=== PATIENT | male | born 1965 | race Caucasian/White ===

== ENCOUNTER 2018-09-21 14:08 | Emergency (ER) | payer BC ==
--- NOTE | 2018-09-21 14:26 | PDOC ---
History of Present Illness - General Chief Complaint: Blood Pressure Problem Stated Complaint: HIGH BLOOD PRESSURE, LEFT EAR PAIN, HEADACHE Time Seen by Provider: 09/21/18 14:24 - History of Present Illness Initial Comments: 09/21/18 14:38 52yo male presents with his brother for eval of elevated BP and difficulty walking today. Pt states he developed a L sided adair and ear pain last night. Pt states he has a hx of HTN and has only taken his ramipril as needed. Pt states he took ramipril 2.5mg last night for elevated BP and the adair. States he woke up this AM and took ramipril this AM 5mg because he still had the headache and elevated BP. States he attempted to walk to work, but felt he was off balance when walking and felt "dizzy". Denies falls. No f/c. No cp/sob/palpitations. No abd pain. No n/v/d. No blurred vision or change in vision. No weakness. No urinary complaints. No paresthesias. Pt currently c/o a L sided adair and ear pain. Pmhx: HTN, gallstones PShx: denies Allergies: denies Meds: noncompliant with ramipril social hx: employed, denies smoking/alcohol/drugs tPA Exclusion checklist 3-4.5h - Time Elapsed Date last known well: 09/20/18 Time last known well: 17:00 Elaspsed time: Day(s) and 23 Hour(s) and 29 Minutes - Thrombolytic Therapy Candidate Is patient eligible for thrombolytic therapy: No - Ineligibility reason(s) Reasons No tPA given: Outside of window - delayed arrival (onset yesterday, NIHSS = 0) NIH Stroke Scale - Last Known Well Date/Time & Onset Date Last Known Well: 09/20/18 Time Last Known Well: 17:00 - Initial Evaluation Level of consciousness: Alert Ask patient the month and their age: Answers both correctly Ask patient to open & close eyes; make fist and let go: Obeys both correctly Best gaze (horizontal eye movement): Normal Visual field testing: No visual field loss Facial paresis (Show teeth/raise eyebrows/close eyes tight): Normal symmetrical movement Motor Function: Left Arm: Normal Motor Function: Right Arm: Normal (extends arm 90 (or 45) degrees for 10 seconds without drift Motor Function: Left Leg: Normal (extends leg 30 degrees for 5 seconds without drift) Motor Function: Right Leg: Normal (extends leg 30 degrees for 5 seconds without drift) Limb Ataxia: No ataxia Sensory(Use pinprick test arms,legs,trunk,face/side to side): Normal Best language (Describe picture, name items, read sentences): No Aphasia Dysarthria (read several words): Normal articulation Extinction and Inattention: No abnormality - Total Score NIH Stroke Scale Score: 0 Past History - Past Medical History Allergies/Adverse Reactions: Allergies Allergy/AdvReac Type Severity Reaction Status Date / Time No Known Allergies Allergy Verified 09/21/18 14:11 Home Medications: Ambulatory Orders Ramipril [Altace] 2.5 mg PO DAILY 09/21/18 COPD: No HTN: Yes - Suicide/Smoking/Psychosocial Hx Smoking History: Never smoked Have you smoked in the past 12 months: No Information on smoking cessation initiated: No Review of Systems - Review of Systems Able to Perform ROS?: Yes Is the patient limited Croatian proficient: No Constitutional: No: Chills, Fever HEENTM: Yes: Ear Pain. No: Eye Pain, Blurred Vision, Double Vision, Ear Discharge, Nose Pain, Nose Congestion, Hearing Loss, Throat Pain, Throat Swelling Respiratory: No: Cough, Shortness of Breath, Wheezing Cardiac (ROS): No: Chest Pain, Irregular Heart Rate, Lightheadedness, Palpitations ABD/GI: No: Diarrhea, Nausea, Vomiting, Abdominal cramping : No: Burning, Dysuria Musculoskeletal: Yes: Neck Pain. No: Back Pain Integumentary: No: Bruising, Rash Neurological: Yes: Headache, Unsteady Gait, Ataxia, Dizziness. No: Numbness, Paresthesia, Seizure, Tingling, Tremors, Weakness All Other Systems: Reviewed and Negative *Physical Exam - Vital Signs Last Vital Signs Temp Pulse Resp BP Pulse Ox 97.8 F 79 18 152/91 96 09/21/18 14:08 09/21/18 14:08 09/21/18 14:08 09/21/18 14:08 09/21/18 14:08 - Physical Exam General Appearance: Yes: Nourished, Appropriately Dressed HEENT: positive: EOMI, EMERITA, Pharynx Normal, Other (small amount of fluid behind L TM without redness/swelling/bulging). negative: Pharyngeal Erythema, Tonsillar Exudate, Tonsillar Erythema, Nasal Congestion, Rhinorrhea Neck: positive: Tender (lateral/paraspinal ttp), Trachea midline, Supple, Tender lateral, Other (no meningeal signs). negative: Rigid, Tender midline Respiratory/Chest: positive: Lungs Clear, Normal Breath Sounds, Respiratory Distress. negative: Chest Tender Cardiovascular: positive: Regular Rhythm, Regular Rate, S1, S2. negative: Edema Gastrointestinal/Abdominal: positive: Normal Bowel Sounds, Flat. negative: Tender, Guarding, Rebound, Tenderness Musculoskeletal: positive: Normal Inspection, Muscle Spasm (L lateral neck). negative: CVA Tenderness, Vertebral Tenderness Extremity: positive: Normal Capillary Refill, Normal Inspection, Normal Range of Motion Integumentary: positive: Normal Color, Dry, Warm. negative: Rash Neurologic: positive: sleeve bottom feller II-XII NML intact, Fully Oriented, Alert, Normal Response, Motor Strength 5/5, Finger to Nose (normal finger to nose and heel to gagnon b/l). negative: Numbness, Sensory Deficit Heart Score/ECG Review - ECG Intrepretation Comment:: 09/21/18 15:00 sinus at 76, nl axis, nl interval, t wave inversions III which are nonspecific, no acute st/t wave findings ED Treatment Course - LABORATORY CBC & Chemistry Diagram: 09/21/18 15:00 09/21/18 15:00 Medical Decision Making - Medical Decision Making 09/21/18 14:36 a/p: 52yo male with L sided adair and L sided neck pain/ear pain with ataxia today and adair since yesterday -hx of HTN on ramipril, but is noncompliant with the medication -developed adair and ear pain yesterday - took ramipril for elevated BP, again this AM took ramipril, but had difficulty ambulating today -will send labs, ua, ekg, cxr, head ct -neuro intact -will medicate for pain and will monitor and repeat neuro exam 09/21/18 16:[address] negative labs reviewed 09/21/18 16:26 cxr clear pt feeling better adair and ear pain resolved pt states all symptoms resolved pt ambulates with a steady gait will repeat vitals and then d/c to home to follow up for BP with dr. silva. *DC/Admit/Observation/Transfer Diagnosis at time of Disposition: Headache - Discharge Dispostion Disposition: HOME Condition at time of disposition: Stable Decision to Admit order: No - Referrals Referrals: Zabrina Silva MD [Non Staff, Medical] - Alexy Carlson MD [Staff Physician] - - Patient Instructions Printed Discharge Instructions: DI for High Blood Pressure, DI for Headache, How to Monitor Your Blood Pressure at Home Additional Instructions: Please take your blood pressure pills as prescribed. Please make an appointment to be seen by your PMD this week for a repeat bp check. Please follow up the neurologist if the headaches continue. Please watch your salt intake. Please return to the ED with any further concerns or complaints. - Post Discharge Activity - Attestations Physician Attestion: 09/21/18 16:28 I, Dr. Grazyan Arciniega, DO, attest that this document has been prepared under my direction and personally reviewed by me in its entirety. I further attest, that it accurately reflects all work, treatment, procedures and medical decision -making performed by me.
[2018-09-21] MEDS ORDERED: SODIUM CHLORIDE 0.9% 1000 ML INFUS.BAG IV ONE (14:35)
[2018-09-21] MEDS ORDERED: METOCLOPRAMIDE HCL INJECTION 10 MG/2 ML VIAL IVPUSH ONE (14:35)
[2018-09-21] MEDS ORDERED: ACETAMINOPHEN 500 MG TABLET (FP) PO ONE (14:35)
[2018-09-21 14:40] VITALS: TEMP 97.8; BMI 33.4
[2018-09-21] MEDS ORDERED: METOCLOPRAMIDE HCL INJECTION 10 MG/2 ML VIAL ONE (14:44)
[2018-09-21] MEDS ORDERED: ACETAMINOPHEN 500 MG TABLET (FP) ONE (14:44)
[2018-09-21 15:24] LABS: BASO % 0.5 % (0-2.0); HEMATOCRIT 42.4 % (35.4-49); HEMOGLOBIN 14.2 GM/dl (11.7-16.9); LYMPH % 26.2 % (8-40); MCH 29.6 pg (25.7-33.7); MCHC 33.5 g/dl (32.0-35.9); MEAN CELL VOLUME 88.3 fl (80-96); MEAN PLT VOLUME 8.2 fl (7.5-11.1); MONO % 8.4 % (3.8-10.2); NEUT % 62.9 % (42.8-82.8); PLATELET COUNT 219 K/MM3 (134-434); RDW 12.3 % (11.9-15.9); WHITE BLOOD COUNT 6.9 K/mm3 (4.0-10.8)
[2018-09-21 15:34] LABS: ACTIVATED PTT 28.6 SECONDS (25.2-36.5)
[2018-09-21 15:36] LABS: ALBUMIN 4.1 g/dl (3.5-5.0); ALK PHOS 86 U/L (32-92); ANION GAP 8 MMOL/L (8-16); BILIRUBIN,TOTAL 0.8 mg/dl (0.2-1.0); BLOOD UREA NITROGEN 15 mg/dl (7-18); CALCIUM 8.5 mg/dl (8.4-10.2); CHLORIDE 101 mmol/L (98-107); CO2 24 mmol/L (22-28); CREATININE 0.8 mg/dl (0.6-1.3); GLUCOSE,RANDOM 112 mg/dl (74-106); MAGNESIUM 1.9 mg/dL (1.8-2.4); POTASSIUM 4.1 mmol/L (3.5-5.1); SGOT/AST 25 U/L (10-42); SGPT/ALT 29 U/L (10-40); SODIUM 133 mmol/L (136-145); TOT PROT 7.5 g/dl (6.4-8.3)
[2018-09-21 15:39] LABS: INR 1.1 (0.82-1.09); PROTHROMBIN TIME (PATIENT) 12.3 SEC (10.2-13.0)
[2018-09-21 16:38] VITALS: BP 160/97; PULSE 88
--- NOTE | 2018-09-22 16:11 | EKG ---
Test Reason : Blood Pressure : / mmHG Vent. Rate : 076 BPM Atrial Rate : 076 BPM P-R Int : 150 ms QRS Dur : 098 ms QT Int : 390 ms P-R-T Axes : 017 -10 010 degrees QTc Int : 438 ms NORMAL SINUS RHYTHM NORMAL ECG NO PREVIOUS ECGS AVAILABLE Confirmed by MD MIGEL, LINO ([id number]) on 09/22/2018 4:11:42 PM Referred By: GUS CHIU Confirmed By:LINO LAINEZ MD
== END 2018-09-21 16:45 | disposition home or self-care (01) ==
LOC: FER 14:08
PROC: 3E0337Z Introduction of Electrolytic and Water Balance Substance into Peripheral Vein, Percutaneous Approach (ICD-10-PCS; principal; 2018-09-21)
PROC: 3E033GC Introduction of Other Therapeutic Substance into Peripheral Vein, Percutaneous Approach (ICD-10-PCS; 2018-09-21)
DX: R51 Headache (principal)
CPT/HCPCS: 36415; 70450-TC; 71046-TC-FY; 80053; 83735; 84443; 85025; 85610; 85730; 93005; 99284-25; J7030